=== PATIENT | male | born 1980 | race Two or more races ===

== ENCOUNTER 2016-09-27 11:56 | Outpatient (CLI) | payer BC | END 2016-09-27 23:59 | disposition home or self-care (01) | LOC: WOU 11:56 | PROVIDERS: ATTEND Podiatrist Foot & Ankle Surgery | DX: B35.1 Tinea unguium (principal); B35.3 Tinea pedis; L20.89 Other atopic dermatitis | CPT/HCPCS: 87070-TC; 87075-TC; 87102-TC; 87186-TC; G0463 ==

== ENCOUNTER 2016-12-27 08:00 | Outpatient (CLI) | payer BC | END 2016-12-27 23:59 | disposition home or self-care (01) | DX: L60.0 Ingrowing nail (principal); L03.031 Cellulitis of right toe; R60.0 Localized edema | CPT/HCPCS: 11730; A6402; J3490 ==